=== PATIENT | male | born 1935 | race Caucasian/White ===

== ENCOUNTER → 2017-01-06 | Outpatient (CLI) | payer MEDICARE ==
[~2017-01-06] MED LIST: ASPI-621 PO; CARV3.1212 PO; CHOL40002 PO; COQ-10 PO; LISI-167 PO; OMEG-110 PO; OMEP20CA9 PO; SIMV40TA3 PO
== END | disposition home or self-care (01) ==
LOC: CFH 08:30
PROVIDERS: ATTEND Family Medicine
DX: R10.9 Unspecified abdominal pain (principal)
CPT/HCPCS: 76700

== ENCOUNTER 2017-01-28 11:16 | Emergency (ER) | payer MEDICARE ==
[~2017-01-28] VITALS: Ht 154.9 cm; Wt 90.1 kg
[2017-01-28] MEDS ORDERED: SODIUM CHLORIDE 0.9% 1,000ML IVBOLUS ONE (12:30)
[2017-01-28 12:40] LABS: ASPARTATE AMINO TRANSFERASE 15 U/L (15-37); BLOOD UREA NITROGEN 25 mg/dL (7-18)
[2017-01-28] MEDS ORDERED: PROSTATE PO (12:49)
[2017-01-28] MEDS ORDERED: OMEP-110 PO (12:49)
[2017-01-28] MEDS ORDERED: CHOL5000 PO (12:49)
[2017-01-28 13:01] LABS: IS PT STATUS REG ER OR PRE ER? YES
[2017-01-28 14:00] VITALS: BP 150/76
== END 2017-01-28 14:16 | disposition home or self-care (01) ==
LOC: ED 12:02
DX: E86.0 Dehydration (principal); R55 Syncope and collapse; M54.2 Cervicalgia; K21.9 Gastro-esophageal reflux disease without esophagitis; I25.810 Atherosclerosis of coronary artery bypass graft(s) without angina pectoris; Z95.1 Presence of aortocoronary bypass graft; E78.5 Hyperlipidemia, unspecified; I10 Essential (primary) hypertension
CPT/HCPCS: 36415; 70450; 71010; 80053; 84484; 85025; 85610; 85730; 93005; 96360; 99285; J7030